=== PATIENT | female | born 1970 | race Caucasian/White ===

== ENCOUNTER 2018-07-06 08:00 | Inpatient (IN) | payer OTHER ==
[2018-07-06] MEDS ORDERED: ROCURONIUM 50 MG INJ ×2 (16:40)
[2018-07-06] MEDS ORDERED: MIDAZOLAM 1 MG/ML 2 ML INJ ×2 (16:40)
[2018-07-06] MEDS ORDERED: PROPOFOL 20 ML ×2 (16:40)
[2018-07-06] MEDS ORDERED: SUCCINYLCHOLINE CHLORIDE 100 MG/5 ML SYG IV ×2 (16:40)
[2018-07-06] MEDS ORDERED: LIDOCAINE 1% (MDV) 20 ML INJ ×2 (16:41)
[2018-07-06] MEDS ORDERED: GELATIN SIZE 100 SPONGE ×2 (16:56)
[2018-07-06] MEDS ORDERED: ROPIVACAINE 0.5 % 30 ML VIAL ×2 (16:56)
== END 2018-07-06 18:40 | disposition home or self-care (01) | DRG 552 ==
LOC: REC 14:16 → LAB 08:00
DX: M48.02 Spinal stenosis, cervical region (principal); G95.9 Disease of spinal cord, unspecified; M54.12 Radiculopathy, cervical region; Z53.8 Procedure and treatment not carried out for other reasons
CPT/HCPCS: 86850; 86900; 86901; 99217

== ENCOUNTER 2018-07-08 08:05 | Inpatient (IN) | payer OTHER ==
[2018-07-08] MEDS ORDERED: ROCURONIUM 50 MG INJ ×2 (09:42→13:07)
[2018-07-08] MEDS ORDERED: MIDAZOLAM 1 MG/ML 2 ML INJ (09:42)
[2018-07-08] MEDS ORDERED: PROPOFOL 20 ML ×2 (09:42→10:41)
[2018-07-08] MEDS ORDERED: METOCLOPRAMIDE 10 MG INJ (09:42)
[2018-07-08] MEDS ORDERED: ONDANSETRON 4 MG INJ (09:42)
[2018-07-08] MEDS ORDERED: CEFAZOLIN 1 GM INJ (09:42)
[2018-07-08] MEDS ORDERED: HYDROmorphONE 2 MG/ML SYG (10:38)
[2018-07-08] MEDS ORDERED: SUCCINYLCHOLINE CHLORIDE 100 MG/5 ML SYG IV (10:39)
[2018-07-08] MEDS ORDERED: METOPROLOL 5 MG INJ (10:45)
[2018-07-08] MEDS ORDERED: DEXAMETHASONE 4 MG/ML 1 ML INJ (10:57)
[2018-07-08] MEDS ORDERED: GELATIN SIZE 100 SPONGE (12:34)
[2018-07-08] MEDS ORDERED: POLYMYXIN/BACITRACIN 1L IRRIG (12:34)
[2018-07-08] MEDS ORDERED: hydrALAzine 20 MG INJ (12:55)
[2018-07-08] MEDS: THROMBIN 20,000 UNIT VIAL ZFS ×2 (13:37→15:29)
[2018-07-08] MEDS ORDERED: NEOSTIGMINE 3 MG/3 ML SYRINGE (14:34)
[2018-07-08] MEDS ORDERED: GLYCOPYRROLATE 0.4 MG INJ (14:34)
[2018-07-08] MEDS ORDERED: HYDROmorphONE 1 MG/ML SYG (15:18)
[2018-07-08] MEDS: GELATIN SIZE 100 SPONGE (15:29)
[2018-07-08] MEDS: POLYMYXIN/BACITRACIN 1L IRRIG (15:29)
[2018-07-08] MEDS: ROPIVACAINE 0.5 % 30 ML VIAL (15:29)
[2018-07-08] MEDS ORDERED: NACL 0.9% 3 ML SYG IV (15:30)
[2018-07-08] MEDS ORDERED: NALOXONE (0.4 MG/ML) INJ IV (15:30)
[2018-07-08] MEDS: ONDANSETRON 4 MG INJ IV (16:20)
[2018-07-08] MEDS: HYDROmorphONE 0.2 MG/ML PCA IV (16:45)
[2018-07-08] MEDS: HYDROmorphONE 1 MG/ML SYG IV (17:02)
[2018-07-08] MEDS: NS + KCL 20 MEQ 1,000 ML IV (19:05)
[2018-07-08] MEDS: CEFAZOLIN 2 GM/50 ML (PMX) 50 ML IVPB ×2 (19:27→23:30)
[2018-07-08] MEDS: QUETIAPINE 100 MG TAB PO (20:44)
[2018-07-08] MEDS: TOPIRAMATE 100 MG TAB PO (20:44)
[2018-07-08] MEDS: HYDROCODONE/APAP (5/325) TAB PO (21:09)
[2018-07-08] MEDS: LORAZEPAM 2 MG INJ IV (21:45)
[2018-07-09] MEDS: ONDANSETRON 4 MG INJ IV ×3 (00:23→17:13)
[2018-07-09] MEDS: NS + KCL 20 MEQ 1,000 ML IV ×3 (01:30→21:30)
[2018-07-09] MEDS: HYDROmorphONE 0.2 MG/ML PCA IV ×2 (02:07→14:29)
[2018-07-09] MEDS: CEFAZOLIN 2 GM/50 ML (PMX) 50 ML IVPB ×3 (05:22→22:13)
[2018-07-09] MEDS: LORAZEPAM 2 MG INJ IV ×2 (05:22→16:23)
[2018-07-09] MEDS: PANTOPRAZOLE SODIUM 20 MG TABEC PO (05:22)
[2018-07-09 05:49] LABS: HEMATOCRIT 29.9 % (37.0-47.0); HEMOGLOBIN 10.1 g/dl (12.0-16.0)
[2018-07-09 06:12] LABS: ANION GAP 12 (5-13); BLOOD UREA NITROGEN 11 mg/dl (7-20); CALCIUM 8.3 mg/dl (8.4-10.2); CARBON DIOXIDE 21 mmol/L (21-31); CHLORIDE 106 mmol/L (97-110); CREATININE 0.41 mg/dl (0.44-1.00); Estimated GFR > 60 mL/min (>60); GLUCOSE 98 mg/dl (70-220); POTASSIUM 4.3 mmol/L (3.5-5.1); SODIUM 139 mmol/L (135-144)
[2018-07-09] MEDS: INFLUENZA VIRUS VACCINE 0.5 ML (DISPENSING) IM* (09:00)
[2018-07-09] MEDS: ESCITALOPRAM 10 MG TAB PO (09:07)
[2018-07-09] MEDS: VERAPAMIL (SR) 240 MG TAB PO (09:07)
[2018-07-09] MEDS: TOPIRAMATE 100 MG TAB PO ×2 (09:07→23:55)
[2018-07-09] MEDS: BUPROPION 100 MG TAB PO (09:07)
[2018-07-09] MEDS: HYDROCODONE/APAP (5/325) TAB PO (15:40)
[2018-07-09] MEDS: QUETIAPINE 100 MG TAB PO (22:12)
[2018-07-10] MEDS: LORAZEPAM 2 MG INJ IV ×2 (01:53→08:33)
[2018-07-10] MEDS: CEFAZOLIN 2 GM/50 ML (PMX) 50 ML IVPB ×3 (04:57→22:27)
[2018-07-10] MEDS: PANTOPRAZOLE SODIUM 20 MG TABEC PO (07:14)
[2018-07-10] MEDS: NS + KCL 20 MEQ 1,000 ML IV ×2 (07:23→18:06)
[2018-07-10] MEDS: CARISOPRODOL 350 MG TAB PO (08:33)
[2018-07-10] MEDS: ESCITALOPRAM 10 MG TAB PO (09:19)
[2018-07-10] MEDS: VERAPAMIL (SR) 240 MG TAB PO (09:19)
[2018-07-10] MEDS: BUPROPION 100 MG TAB PO (09:28)
[2018-07-10] MEDS: TOPIRAMATE 100 MG TAB PO ×2 (09:28→22:27)
[2018-07-10] MEDS ORDERED: HYDROmorphONE 0.5 MG/0.5 ML SYG IM (13:50)
[2018-07-10] MEDS: HYDROmorphONE 0.2 MG/ML PCA IV (14:17)
[2018-07-10] MEDS: HYDROmorphONE 0.5 MG/0.5 ML SYG IV (14:19)
[2018-07-10] MEDS: QUETIAPINE 100 MG TAB PO (21:21)
[2018-07-10] MEDS: HYDROCODONE/APAP (5/325) TAB PO (21:30)
[2018-07-11] MEDS: HYDROCODONE/APAP (5/325) TAB PO ×4 (01:34→20:23)
[2018-07-11] MEDS: NS + KCL 20 MEQ 1,000 ML IV ×2 (03:40→14:03)
[2018-07-11] MEDS ORDERED: PANTOPRAZOLE (EC) 40 MG TAB PO (05:09)
[2018-07-11] MEDS: PANTOPRAZOLE SODIUM 20 MG TABEC PO (05:23)
[2018-07-11] MEDS: VERAPAMIL (SR) 240 MG TAB PO (08:49)
[2018-07-11] MEDS: BUPROPION 100 MG TAB PO (08:49)
[2018-07-11] MEDS: TOPIRAMATE 100 MG TAB PO ×2 (08:50→20:21)
[2018-07-11] MEDS: ESCITALOPRAM 10 MG TAB PO (08:50)
[2018-07-11] MEDS: HYDROmorphONE 0.2 MG/ML PCA IV ×2 (10:25→18:34)
[2018-07-11] MEDS: QUETIAPINE 100 MG TAB PO (20:21)
[2018-07-11] MEDS: CARISOPRODOL 350 MG TAB PO (20:23)
[2018-07-12] MEDS: PANTOPRAZOLE SODIUM 20 MG TABEC PO (05:32)
[2018-07-12] MEDS: HYDROCODONE/APAP (5/325) TAB PO ×3 (09:24→17:57)
[2018-07-12] MEDS: CARISOPRODOL 350 MG TAB PO ×3 (09:24→21:19)
[2018-07-12] MEDS: TOPIRAMATE 100 MG TAB PO ×2 (09:24→21:12)
[2018-07-12] MEDS: ESCITALOPRAM 10 MG TAB PO (09:26)
[2018-07-12] MEDS: BUPROPION 100 MG TAB PO (09:26)
[2018-07-12] MEDS: VERAPAMIL (SR) 240 MG TAB PO (09:26)
[2018-07-12] MEDS: HYDROmorphONE 0.5 MG/0.5 ML SYG IV ×2 (10:54→21:22)
[2018-07-12] MEDS: LORAZEPAM 2 MG INJ IV (12:24)
[2018-07-12] MEDS: QUETIAPINE 100 MG TAB PO (21:12)
[2018-07-12] MEDS: GABAPENTIN 300 MG CAP PO (22:00)
[2018-07-13] MEDS: HYDROmorphONE 0.5 MG/0.5 ML SYG IV ×5 (03:55→17:33)
[2018-07-13] MEDS: CARISOPRODOL 350 MG TAB PO ×2 (06:07→20:15)
[2018-07-13] MEDS: HYDROCODONE/APAP (5/325) TAB PO ×3 (06:08→20:16)
[2018-07-13] MEDS: PANTOPRAZOLE SODIUM 20 MG TABEC PO (06:20)
[2018-07-13] MEDS: TOPIRAMATE 100 MG TAB PO ×2 (08:15→20:15)
[2018-07-13] MEDS: ESCITALOPRAM 10 MG TAB PO (08:15)
[2018-07-13] MEDS: BUPROPION 100 MG TAB PO (08:15)
[2018-07-13] MEDS: LORAZEPAM 2 MG INJ IV (08:15)
[2018-07-13] MEDS: GABAPENTIN 300 MG CAP PO ×3 (08:16→17:32)
[2018-07-13] MEDS: VERAPAMIL (SR) 240 MG TAB PO (08:16)
[2018-07-13 10:54] LABS: ADD MAN DIFF? NO
[2018-07-13 11:13] LABS: BASOPHILS % 0.4 % (0.0-2.0); EOSINOPHILS # 0.1 10^3/ul (0.0-0.5); EOSINOPHILS % 1.5 % (0.0-7.0); HEMOGLOBIN 9.6 g/dl (12.0-16.0); LYMPHOCYTES # 1.2 10^3/ul (0.8-2.9); LYMPHOCYTES % 13.6 % (15.0-51.0); MEAN CORPUSCULAR HEMOGLOBIN 29.6 pg (29.0-33.0); MEAN CORPUSCULAR HGB CONC 33.1 g/dl (32.0-37.0); MEAN CORPUSCULAR VOLUME 89.5 fl (82.0-101.0); MONOCYTE # 0.7 10^3/ul (0.3-0.9); MONOCYTES % 7.9 % (0.0-11.0); NEUTROPHIL # 6.9 10^3/ul (1.6-7.5); NEUTROPHILS % 75.4 % (39.0-77.0); PLATELET COUNT 193 10^3/UL (140-415); RED BLOOD COUNT 3.24 10^6/ul (4.20-5.40); RED CELL DISTRIBUTION WIDTH 12.9 % (11.5-14.5)
[2018-07-13 11:13] LABS: WHITE BLOOD COUNT 9.2 10^3/ul (4.8-10.8)
[2018-07-13 11:17] LABS: ANION GAP 8 (5-13); BLOOD UREA NITROGEN 9 mg/dl (7-20); CARBON DIOXIDE 25 mmol/L (21-31); CHLORIDE 103 mmol/L (97-110); CREATININE 0.54 mg/dl (0.44-1.00); Estimated GFR > 60 mL/min (>60); GLUCOSE 102 mg/dl (70-220); SODIUM 136 mmol/L (135-144)
[2018-07-13] MEDS: QUETIAPINE 100 MG TAB PO (20:15)
[2018-07-14] MEDS: HYDROmorphONE 0.5 MG/0.5 ML SYG IV ×4 (01:30→15:47)
[2018-07-14] MEDS: LORAZEPAM 2 MG INJ IV (03:49)
[2018-07-14] MEDS: HYDROCODONE/APAP (5/325) TAB PO ×3 (04:30→12:58)
[2018-07-14] MEDS: PANTOPRAZOLE SODIUM 20 MG TABEC PO (05:37)
[2018-07-14] MEDS: GABAPENTIN 300 MG CAP PO ×4 (05:37→17:11)
[2018-07-14 05:40] LABS: ADD MAN DIFF? NO
[2018-07-14 05:47] LABS: WHITE BLOOD COUNT 7.1 10^3/ul (4.8-10.8)
[2018-07-14 05:47] LABS: BASOPHIL # 0.1 10^3/ul (0.0-0.1); BASOPHILS % 0.7 % (0.0-2.0); EOSINOPHILS # 0.2 10^3/ul (0.0-0.5); EOSINOPHILS % 2.3 % (0.0-7.0); HEMATOCRIT 28.5 % (37.0-47.0); HEMOGLOBIN 9.6 g/dl (12.0-16.0); LYMPHOCYTES # 1.2 10^3/ul (0.8-2.9); LYMPHOCYTES % 17.3 % (15.0-51.0); MEAN CORPUSCULAR HEMOGLOBIN 29.9 pg (29.0-33.0); MEAN CORPUSCULAR HGB CONC 33.7 g/dl (32.0-37.0); MEAN CORPUSCULAR VOLUME 88.8 fl (82.0-101.0); MEAN PLATELET VOLUME 10.2 fl (7.4-10.4); MONOCYTE # 0.5 10^3/ul (0.3-0.9); MONOCYTES % 6.5 % (0.0-11.0); NEUTROPHILS % 71.4 % (39.0-77.0); PLATELET COUNT 186 10^3/UL (140-415); RED BLOOD COUNT 3.21 10^6/ul (4.20-5.40); RED CELL DISTRIBUTION WIDTH 12.8 % (11.5-14.5)
[2018-07-14 06:19] LABS: ANION GAP 12 (5-13); BLOOD UREA NITROGEN 11 mg/dl (7-20); CALCIUM 9.3 mg/dl (8.4-10.2); CARBON DIOXIDE 24 mmol/L (21-31); CHLORIDE 106 mmol/L (97-110); CREATININE 0.51 mg/dl (0.44-1.00); Estimated GFR > 60 mL/min (>60); GLUCOSE 96 mg/dl (70-220); POTASSIUM 3.7 mmol/L (3.5-5.1); SODIUM 142 mmol/L (135-144)
[2018-07-14] MEDS: VERAPAMIL (SR) 240 MG TAB PO (09:20)
[2018-07-14] MEDS: BUPROPION 100 MG TAB PO (09:20)
[2018-07-14] MEDS: TOPIRAMATE 100 MG TAB PO (09:20)
[2018-07-14] MEDS: ESCITALOPRAM 10 MG TAB PO (09:21)
[2018-07-14] MEDS: OXYCODONE/ACETAMINOPHEN (5/325) TAB PO ×2 (11:07→17:11)
[2018-07-14] MEDS: CARISOPRODOL 350 MG TAB PO (14:32)
== END 2018-07-14 18:02 | disposition home health service (06) | DRG 455 ==
LOC: REC 08:05 → 6WM 07-09 19:36 → ICU 15:29
PROC: 0RG20K0 Fusion of 2 or more Cervical Vertebral Joints with Nonautologous Tissue Substitute, Anterior Approach, Anterior Column, Open Approach (ICD-10-PCS; principal; 2018-07-08 09:30)
PROC: 0RG20K1 Fusion of 2 or more Cervical Vertebral Joints with Nonautologous Tissue Substitute, Posterior Approach, Posterior Column, Open Approach (ICD-10-PCS; 2018-07-08 09:30)
DX: M50.023 Cervical disc disorder at C6-C7 level with myelopathy (principal); I10 Essential (primary) hypertension; F41.9 Anxiety disorder, unspecified; F32.9 Major depressive disorder, single episode, unspecified; G89.29 Other chronic pain; M67.412 Ganglion, left shoulder; Z90.49 Acquired absence of other specified parts of digestive tract
CPT/HCPCS: 72020; 72125; 80048; 84703; 85014; 85018; 85025; 87081; 88304; 88311; 90686; 97110; 97116; 97163; 97530